=== PATIENT | female | born 1960 | race Caucasian/White ===

== ENCOUNTER 2016-11-27 09:55 | Emergency (ER) | payer BC, MEDICARE ==
[2016-11-27 10:22] LABS: Urine Bilirubin Negative (NEGATIVE); Urine Blood 25 /ul (NEGATIVE); Urine Ketone Negative (NEGATIVE); Urine Nitrite Negative (NEGATIVE); Urine Protein Negative (NEGATIVE); Urine Urobilinogen Normal (NORMAL)
[2016-11-27 10:31] LABS: Urine Appearance Clear; Urine Bacteria None Seen; Urine Color Yellow; Urine RBC TRACE /hpf (0-5); Urine WBC None Seen /hpf (0-5)
[2016-11-27] MEDS ORDERED: ONDANSETRON 4 MG TAB.RAPDIS PO ONE (10:33)
--- OUTSIDE RECORDS SUMMARY | 2016-11-27 10:33 | XMS REPORT | Continuity of Care Document ---
:1960 Author Organization [facility] ([facility]) Address [address] [place] [address] Phone [phone] Care Team Providers Name Role Phone Jeremie Justice Primary Care Provider [phone] Source Comments This disclosure is being made pursuant to the Care Everywhere program, applicable federal and state laws, and may not contain all informaitonavailable regarding this patient.[facility] ([facility]) Active Allergies and Adverse Reactions Allergen Noted Date Severity Reactions Comments Iodine And Iodide Containing Products Anaphylactic Shock Penicillin G Anaphylactic Shock Current Medications Not on file Active Problems Problem Noted Date Rheumatism, unspecified and fibrositis 12/13/2006 Social History Tobacco Use Types Packs/Day Years Used Date Never Assessed Last Filed Vital Signs Vital Sign Reading Time Taken Blood Pressure 106/57 12/13/2006 8:27 AM CDT Pulse 77 12/13/2006 8:27 AM CDT Temperature 36.6 C (97.88 F) 12/13/2006 8:27 AM CDT Respiratory Rate - - Height - - Weight 115.599 kg (254 lb 13.6 oz) 12/13/2006 8:27 AM CDT Body Mass Index - - Oxygen Saturation - - Plan of Care Health Maintenance Due Date Last Done Comments Hepatitis B Vaccine (1 of 3 - Primary Series) 1960 Tdap Vaccine 1969 Lipid Disorder Screening 1976 MMR Vaccine 1976 Td Vaccine 1976 Cervical Cancer Screening 1988 Mammogram 1998 Colonoscopy 08/19/2008 Influenza Vaccine: Seasonal (#1) 04/18/2016 HCV Screening Completed 12/13/2006 Results from Last 3 Months Not on file
[2016-11-27] MEDS ORDERED: KETOROLAC TROMETHAMINE 60 MG/2 ML VIAL IM ONE ×2 (10:38→10:43)
[2016-11-27] MEDS ORDERED: ONDANSETRON 4 MG TAB.RAPDIS ONE (10:43)
--- NOTE | 2016-11-27 10:47 | ERNOTE ---
ER Female HPI Date of Service: 11/27/16 Stated Complaint: UTI Time Seen by Provider: 11/27/16 10:11 Source: patient Exam Limitations: no limitations Immunizations: IMMUNIZATION HX Immunizations Up to Date Yes History of Influenza Vaccine No Hx Pneumococcal Vaccination No Allergies/Adverse Reactions: Allergies carisoprodol [From Soma] Allergy (Unknown, Verified 11/27/16 10:09) duloxetine HCl [From Cymbalta] Allergy (Unknown, Verified 11/27/16 10:09) Iodinated Contrast Media - IV Dye [IV Dye, Iodine Containing Contrast ] Allergy (Unknown, Verified 11/27/16 10:09) Penicillins Allergy (Unknown, Verified 11/27/16 10:09) pregabalin [From Lyrica] Allergy (Unknown, Verified 11/27/16 10:09) methadone Allergy (Verified 11/27/16 10:09) NSAIDS (Non-Steroidal Anti-Inflamma Allergy (Verified 11/27/16 10:09) Sulfa (Sulfonamide Antibiotics) Adverse Reaction (Verified 11/27/16 10:09) Home Medications: HOME MEDICATIONS Bisoprolol Fumarate [Zebeta] 15 mg PO BID 11/27/16 [Last Taken Unknown] Cholecalciferol (Vitamin D3) [Vitamin D3] 10,000 unit PO Q7D 11/27/16 [Last Taken Unknown] Estradiol [Estrace] 1 mg PO DAILY 11/27/16 [Last Taken Unknown] Gabapentin [Neurontin] 600 mg PO TID 11/27/16 [Last Taken Unknown] Hydrochlorothiazide [Hydrodiuril] 25 mg PO DAILY 11/27/16 [Last Taken Unknown] Hydrocodone/Acetaminophen [Hydrocodon-Acetaminophn 10-325] 1 tab PO Q4H PRN 09/03 [Last Taken Unknown] Hydroxychloroquine Sulfate 200 mg PO BID 11/27/16 [Last Taken Unknown] Methylphenidate HCl [Ritalin] 20 mg PO BID 11/27/16 [Last Taken Unknown] Phenazopyridine HCl [Azo Urinary Pain Relief] 97.5 mg PO DAILY 11/27/16 [Last Taken Unknown] Phenazopyridine HCl [Pyridium] 100 mg PO TID #6 tab 11/27/16 [Last Taken Unknown ] traMADol HCL [Ultram] 100 mg PO QID PRN 11/27/16 [Last Taken Unknown] traZODone HCL [Desyrel] 100 mg PO HS 11/27/16 [Last Taken Unknown] - History of Present Illness Narrative: Pt. comes in with c/o R flank pain, suprapubic pain, frequency, and dysuria for a week after pt. was on ceftin for a sinusitis. Pt. denies any SOB, CP, vomiting, diarrhea, but does state that she has nausea. Pt. states that she has taken monistat and AZO without relief in symptoms. Pt. is on multiple medications for Rheumatoid arthritis and none are effective for the pain that she is experiencing. Review of Systems - Review of Systems Constitutional: Present: no symptoms reported. Absent: recent illness, fever, chills, weakness, fatigue, malaise EYE: Present: no symptoms reported ENT: Present: no symptoms reported. Absent: nose pain, nose congestion, nasal drainage, sore throat Respiratory: Present: no symptoms reported. Absent: shortness of breath, cough Cardiology: Present: no symptoms reported. Absent: chest pain, palpitations, edema Gastrointestinal/Abdominal: Present: nausea. Absent: vomiting, diarrhea, abdominal pain Genitourinary: Present: frequency, pain, dysuria, hematuria. Absent: discharge Musculoskeletal: Present: back pain - R flank. Absent: neck pain, joint pain Skin: Present: no symptoms reported. Absent: rash, change in color Neurological: Present: no symptoms reported. Absent: headache, dizziness/light- headedness, numbness, tingling All Other Systems: All systems neg except as marked - Patient's Past Medical History Patient History - Medical: Anxiety, Arthritis, Chronic Pain, Depression, Fibromyalgia Patient History - Cardiac/Respiratory: Hypertension Patient History - Cancer: No Hx of Cancer Patient History - Surgical Procedures: Back Surgery, Colonoscopy, Hysterectomy, Other Patient History - Other: None - Family History Mother Family History - Cardiac/Respiratory: Hypertension Father Family History - Cardiac/Respiratory: Hypertension, Myocardial Infarction - Social History Living Situations: spouse Abuse History: No History of abuse Psych History: Hx of Anxiety, Hx of Depression Smoking Status: Current every day smoker Have you smoked in the past 12 months: Yes Alcohol Use: none Drug Use: none - Immunizations Immunizations Up to Date: Yes Hx Pneumococcal Vaccination: No History of Influenza Vaccine: No Physical Exam - Physical Exam General Appearance: Present: wd/wn, alert, no apparent distress Eye Exam: Normal inspection: bilateral, PERRL: bilateral, EOMI: bilateral Ears, Nose, Throat: Present: normal ENT inspection, normal pharynx Neck: Present: normal inspection, nontender. Absent: lymphadenopathy (R), lymphadenopathy (L) Respiratory: Present: no respiratory distress, normal breath sounds, no accessory muscle use, chest nontender, lungs clear. Absent: rales, rhonchi, wheezing Cardiovascular/Chest: Present: regular rate, rhythm, no murmur, normal peripheral pulses Gastrointestinal/Abdominal: Present: normal bowel sounds, nondistended, soft, no organomegaly, tenderness - suprapubic Back Exam: Present: normal range of motion, no vertebral tenderness, CVA tenderness (R) Extremity Exam: Present: normal inspection, non-tender, normal range of motion, no edema Neurological Exam: Present: alert, oriented, normal mood/affect, no motor/ sensory deficits Skin Exam: Present: normal color, warm/dry. Absent: pallor, skin rash ED Progress - Results and Orders Patient's Lab Results:: I have reviewed the patient's lab results. - Vital Signs Patient's Vital Signs:: I have reviewed the patient's vital signs. Vital Signs: Vital Signs 11/27/16 10:05 Temperature 36.6 C Pulse Rate 62 Respiratory 14 Rate Blood Pressure 155/109 O2 Sat by Pulse 96 Oximetry - CT/Ultrasound CT/Ultrasound Narrative: CT without stones or hydronephrosis. - Progress/Reassessment Chief Complaint: Genitourinary Problem Progress:: Unchanged Departure Clinical Impression: Right flank pain, Cystitis, interstitial - Departure Disposition: Home self-care Condition: Good Instructions: Interstitial Cystitis Additional Instructions: Please follow up with urologist next week by calling office at your earliest convenience Referrals: Tyson Sainz MD [Primary Care Provider] - Will Becerra MD [Associate] - Prescriptions: Phenazopyridine HCl [Pyridium] 100 mg PO TID #6 tab
[2016-11-27 11:48] LABS: Hematocrit 41.3 % (37.0-47.0); Hemoglobin 13.8 gm/dL (12.5-16.0); Mean Cell Volume 90.8 fl (78-100); Mean Corpuscular Hemoglobin 30.3 pg (27-31); Mean Corpuscular Hgb Conc 33.4 g/dl (32-36); Mean Platelet Volume 8.3 fl (6.0-9.5); Neutrophil # 6.3 K/mm3 (1.3-6.0); Neutrophil % 61.9 % (42-75.0); Platelet Count 351 K/mm3 (150-450); Red Blood Count 4.55 M/mm3 (4.2-5.4); Red Cell Distribution Width 13.7 % (11.5-14.0); White Blood Count 10.2 K/mm3 (4.0-10.5)
[2016-11-27 12:02] LABS: Albumin * 3.6 gm/dl (3.4-5.0); Anion Gap 12.4 mmol/L (6.8-13.8); BUN/Creatinine Ratio 10.1 (9.0-21.6); Bilirubin, Total 0.2 mg/dL (0.0-1.1); Ca. Corrected For Albumin 9.1 mg/dL (8.4-10.2); Calcium * 9.1 mg/dL (7.9-10.9); Carbon Dioxide 31.1 mmol/L (24-32.6); Potassium 3.5 mmol/L (3.4-4.6); Total Protein 7.2 gm/dL (6.2-8.2)
[2016-11-27 12:35] VITALS: BP 155/79
== END 2016-11-27 12:36 | disposition home or self-care (01) ==
LOC: ER 09:55
DX: R10.9 Unspecified abdominal pain (principal); N30.10 Interstitial cystitis (chronic) without hematuria; Z72.0 Tobacco use; I10 Essential (primary) hypertension; F41.8 Other specified anxiety disorders; G89.29 Other chronic pain; M79.7 Fibromyalgia

== ENCOUNTER 2017-02-16 13:47 | Emergency (ER) | payer BC, MEDICARE ==
[2017-02-16 14:04] VITALS: BP 173/78
--- NOTE | 2017-02-16 14:52 | ERNOTE ---
Integumentary HPI - General Presenting Symptoms: rash, other - tick bite Time Seen by Provider: 02/16/17 14:40 Source: patient Exam Limitations: no limitations - Immun/Allergies/Home Medications Immunizations: IMMUNIZATION HX Immunizations Up to Date Yes History of Influenza Vaccine No Hx Pneumococcal Vaccination No Allergies/Adverse Reactions: Allergies Allergy/AdvReac Type Severity Reaction Status Date / Time carisoprodol [From Soma] Allergy Unknown Verified 11/27/16 10:09 duloxetine HCl Allergy Unknown Verified 11/27/16 10:09 [From Cymbalta] Iodinated Contrast Media - Allergy Unknown Verified 11/27/16 10:09 Oral and [IV Dye, Iodine Containing Contrast ] Penicillins Allergy Unknown Verified 11/27/16 10:09 pregabalin [From Lyrica] Allergy Unknown Verified 11/27/16 10:09 methadone Allergy Verified 11/27/16 10:09 NSAIDS (Non-Steroidal Allergy Verified 11/27/16 10:09 Anti-Inflamma Sulfa (Sulfonamide AdvReac Verified 11/27/16 10:09 Antibiotics) Home Medications: HOME MEDICATIONS Cholecalciferol (Vitamin D3) [Vitamin D3] 10,000 unit PO Q7D 11/27/16 [Last Taken Unknown] Estradiol [Estrace] 1 mg PO DAILY 11/27/16 [Last Taken Unknown] Gabapentin [Neurontin] 600 mg PO TID 11/27/16 [Last Taken Unknown] traMADol HCL [Ultram] 100 mg PO QID PRN 11/27/16 [Last Taken Unknown] traZODone HCL [Desyrel] 150 mg PO HS 11/27/16 [Last Taken Unknown] Bisoprolol Fumarate 5 mg PO BID 02/16/17 [Last Taken Unknown] Doxycycline Monohydrate 100 mg PO BID #28 tablet 02/16/17 [Last Taken Unknown] Estrogens, Conjugated [Premarin] 0.625 mg PO PRN PRN 02/16/17 [Last Taken Unknown] Fluticasone Propionate [Flonase] 1 spray NS DAILY 02/16/17 [Last Taken Unknown] HYDROcodone/ACETAMINOPHEN [Hydrocodon-Acetaminophn 10-325] 1 tab PO Q6H PRN 10/04 [Last Taken Unknown] Hydrochlorothiazide [Hydrodiuril] 25 mg PO DAILY 02/16/17 [Last Taken Unknown] Methylphenidate HCl [Ritalin] 20 mg PO BID 02/16/17 [Last Taken Unknown] Teriparatide [Forteo] 2.4 ml SQ DAILY 02/16/17 [Last Taken Unknown] - History of Present Illness Narrative: pt sustained a tick bite to her left foot at home ten days ago now has two reddish rashes on left foot Review of Systems - Review of Systems Constitutional: Present: fatigue, malaise. Absent: fever EYE: Present: no symptoms reported ENT: Present: no symptoms reported Respiratory: Present: no symptoms reported Cardiology: Present: no symptoms reported Gastrointestinal/Abdominal: Present: no symptoms reported Genitourinary: Present: no symptoms reported Skin: Present: other - pt has two target like rashes on left foot and ankle, no other rashes noted elsewhere - Patient's Past Medical History Patient History - Medical: Anxiety, Arthritis, Chronic Pain, Depression, Fibromyalgia, Other Patient History - Cardiac/Respiratory: Hypertension Patient History - Cancer: No Hx of Cancer Patient History - Surgical Procedures: Back Surgery, Colonoscopy, Hysterectomy, Other Patient History - Other: None - Family History Mother Family History - Cardiac/Respiratory: Hypertension Father Family History - Cardiac/Respiratory: Hypertension, Myocardial Infarction - Social History Living Situations: home Abuse History: No History of abuse Psych History: Hx of Anxiety, Hx of Depression Smoking Status: Current every day smoker Have you smoked in the past 12 months: Yes Alcohol Use: none Drug Use: none - Immunizations Immunizations Up to Date: Yes Hx Pneumococcal Vaccination: No History of Influenza Vaccine: No Physical Exam - Physical Exam General Appearance: Present: wd/wn, alert, no apparent distress Ears, Nose, Throat: Present: normal ENT inspection, normal pharynx Neck: Present: normal inspection, nontender Respiratory: Present: no respiratory distress, normal breath sounds, no accessory muscle use, chest nontender, lungs clear Cardiovascular/Chest: Present: regular rate, rhythm, no murmur, normal peripheral pulses Gastrointestinal/Abdominal: Present: normal bowel sounds, nontender, nondistended, soft, no organomegaly Skin Exam: Present: other - pt has two typical target like circular rashes on the left arch and on distal medial aspect of the left ankle. There are no scabs or open lesions and no other rashes elsewhere ED Progress - Vital Signs Patient's Vital Signs:: I have reviewed the patient's vital signs. Vital Signs: Vital Signs 06/01/17 14:01 Temperature 36.8 C Pulse Rate 59 L Respiratory 17 Rate Blood Pressure 173/78 O2 Sat by Pulse 96 Oximetry - Progress/Reassessment Chief Complaint: Insect Bite Departure Clinical Impression: Tick bite Qualifiers: Encounter type: initial encounter Qualified Code(s): W57.XXXA - Bitten or stung by nonvenomous insect and other nonvenomous arthropods, initial encounter - Departure Disposition: Home self-care Condition: Good Instructions: Preventing Mosquito-Borne Illnesses Referrals: Tyson Sainz MD [Primary Care Provider] - Prescriptions: Doxycycline Monohydrate 100 mg PO BID #28 tablet
--- OUTSIDE RECORDS SUMMARY | 2017-02-16 14:55 | XMS REPORT | Continuity of Care Document ---
:1960 Author Organization [facility] ([facility]) Address [address] [place] [address] Phone [phone] Care Team Providers Name Role Phone Jeremie Justice Primary Care Provider [phone] Source Comments This disclosure is being made pursuant to the Care Everywhere program, applicable federal and state laws, and may not contain all informaitonavailable regarding this patient.[facility] ([facility]) Active Allergies and Adverse Reactions Allergen Noted [...]
== END 2017-02-16 15:03 | disposition home or self-care (01) ==
LOC: ER 13:47
DX: R21 Rash and other nonspecific skin eruption (principal); W57.XXXA Bitten or stung by nonvenomous insect and other nonvenomous arthropods, initial encounter; I10 Essential (primary) hypertension; F41.8 Other specified anxiety disorders; M19.90 Unspecified osteoarthritis, unspecified site; G89.29 Other chronic pain; M79.7 Fibromyalgia